=== PATIENT | male | born 1945 | race Caucasian/White ===

== ENCOUNTER 2016-12-31 09:59 | Day surgery (SDC) | payer OTHER ==
[~2016-12-31 09:59] MED LIST: BRIMONIDINE 0.2% OPHTH DROPS 5 ML ONE; KETOROLAC 0.45% OPHTH DROPS ONE; PROPARACAINE 0.5% OPHTH DROPS 15 ML ONE; TIMOLOL 0.5% OPHTH DROPS ONE
[2016-12-31] MEDS: PHENYLEPHRINE 2.5% OPHTH 2 ML DROPS ONE ×3 (10:40→10:53)
[2016-12-31] MEDS: CYCLOPENTOLATE 1% OPHTH DROPS 2 ML ONE ×3 (10:41→10:53)
[2016-12-31] MEDS ORDERED: LACTATED RINGERS 1,000 ML IV ONE (10:43)
[2016-12-31] MEDS ORDERED: PROPARACAINE 0.5% OPHTH DROPS 15 ML RIGHTEYE ONE (11:48)
[2016-12-31] MEDS ORDERED: MIDAZOLAM 2 MG/2 ML VIAL IVP ONE (11:50)
[2016-12-31] MEDS ORDERED: TRIAMCIN/MOXIFLOX/VANCO 1 ML VIAL IO ONE (11:58)
[2016-12-31] MEDS ORDERED: TIMOLOL 0.5% OPHTH DROPS OPTH ONE (11:58)
[2016-12-31] MEDS ORDERED: EPINEPHrine 1 MG/ML AMP IVP ONE (11:58)
[2016-12-31] MEDS ORDERED: CHONDR SULF/HYALURONATE SYRINGE IO ONE (11:58)
[2016-12-31] MEDS ORDERED: BSS/LIDOCAINE/EPINEPHRINE 1 ML SYRINGE IO ONE (11:58)
[2016-12-31 12:50] VITALS: BP 122/68
--- NOTE | 2017-01-01 06:00 | OPERATIVE REPORT ---
DATE OF SURGERY: 12/31/2016 00:00:00 PREOPERATIVE DIAGNOSIS: Visually significant cataract, right eye. This was his first cataract surgery. Of note, he has keratoconus. POSTOPERATIVE DIAGNOSIS: Visually significant cataract, right eye. This was his first cataract surgery. Of note, he has keratoconus. NAME OF PROCEDURE: Phacoemulsification posterior chamber intraocular lens implant, right eye. SURGEON: Mike Nelson MD. ANESTHESIA: Monitored anesthesia care. COMPLICATIONS: None. OPERATIVE INDICATIONS: This is a 71-year-old man with progressive vision loss in the right eye due to 2+ nuclear and vacular cataract. Best corrected visual acuity was 20/70 with glare to 20/200 in the right eye. Indications for surgery were overall decrease in vision, difficulty seeing words on the computer screen , difficulty reading, difficulty seeing words or game scores on TV, difficulty seeing street signs, difficulty driving in low light or at night, difficulty driving at night because of head lights from other vehicles, difficulty with glare and bright lights in any situation and tracking a golf ball. He was consented at length concerning the risks and benefits of cataract surgery, after which he expressed a desire to proceed with surgery. OPERATIVE PROCEDURE: The patient was taken into OR #3 and placed under monitored anesthesia care. a surgical time-out was conducted confirming the correct patient, correct procedure and correct surgical site. He was placed under the LenSx laser and his eye docked to the laser interface. The laser performed the capsulotomy, lens softening, phaco wounds, and intrasromal toric lens markers. He was then moved to the operating microscope, given topical anesthesia, and prepped and draped in the usual sterile fashion. The eye was entered at the 12 and 9 o'clock positions. Intracameral Shugarcaine was injected into the anterior chamber followed by Viscoat. The capsulorrhexis flap created laser was removed from the anterior chamber. The nucleus was hydrodissected and phacoemulsified. The cortex was evacuated using automated infusion aspiration. Provisc was injected into the capsular bag and a 6.0 diopter toric intraocular lens was inserted in the bag and rotated to axis 118. I/A was used to evacuate the viscoelastic materials. The eye was inflated to physiologic pressure using balanced salt solution and found to be water tight. The lens verified to be in the proper position. Approximately 0.7 mL of a mixture of triamcinolone, moxifloxacin, and vancomycin was injected subconjunctivally in the superior quadrant for infection and inflammation prophylaxis. After final verification of the watertight integrity and position of the lens, the patient was taken from the operating room in good condition, given postoperative instructions. JOB #: [id number] EXT JOB #:[id number] MTDD
== END 2016-12-31 10:00 | disposition home or self-care (01) ==
LOC: SDS 09:59
PROVIDERS: ATTEND Ophthalmology
PROC: 08RJ3JZ Replacement of Right Lens with Synthetic Substitute, Percutaneous Approach (ICD-10-PCS; principal; 2016-12-31 11:00)
DX: H25.811 Combined forms of age-related cataract, right eye (principal); L57.0 Actinic keratosis
CPT/HCPCS: 66984; A9270; J3490; J7120; V2632; V2787

== ENCOUNTER 2017-01-28 08:48 | Day surgery (SDC) | payer OTHER ==
[~2017-01-28 08:48] MED LIST changes: +CYCLOPENTOLATE 1% OPHTH DROPS 2 ML ONE; +PHENYLEPHRINE 2.5% OPHTH 2 ML DROPS ONE
[2017-01-28] MEDS ORDERED: PROPARACAINE 0.5% OPHTH DROPS 15 ML LEFTEYE ONE ×2 (09:37→10:16)
[2017-01-28] MEDS ORDERED: CYCLOPENTOLATE 1% OPHTH DROPS 2 ML LEFTEYE ONE (09:37)
[2017-01-28] MEDS ORDERED: PHENYLEPHRINE 2.5% OPHTH 2 ML DROPS LEFTEYE ONE (09:37)
[2017-01-28] MEDS ORDERED: KETOROLAC 0.45% OPHTH DROPS LEFTEYE ONE (09:37)
[2017-01-28] MEDS ORDERED: LACTATED RINGERS 500 ML IV ONE (09:45)
[2017-01-28] MEDS ORDERED: BRIMONIDINE 0.2% OPHTH DROPS 5 ML OPTH ONE (10:14)
[2017-01-28] MEDS ORDERED: MIDAZOLAM 2 MG/2 ML VIAL IVP ONE (10:15)
[2017-01-28] MEDS ORDERED: TIMOLOL 0.5% OPHTH DROPS OPTH ONE (10:15)
[2017-01-28] MEDS ORDERED: EPINEPHrine 1 MG/ML AMP IVP ONE (10:15)
[2017-01-28] MEDS ORDERED: CHONDR SULF/HYALURONATE SYRINGE IO ONE (10:15)
[2017-01-28] MEDS ORDERED: BSS/LIDOCAINE/EPINEPHRINE 1 ML SYRINGE IO ONE ×2 (10:16)
[2017-01-28] MEDS ORDERED: TRIAMCIN/MOXIFLOX/VANCO 1 ML VIAL IO ONE ×2 (10:16)
[2017-01-28 10:49] VITALS: BP 126/63
--- NOTE | 2017-01-29 15:30 | OPERATIVE REPORT ---
DATE OF SURGERY: 01/28/2017 PREOPERATIVE DIAGNOSIS: Visually significant cataract, left eye. Cataract surgery was performed on his right eye on December,. He also has keratoconus and we will be using an intraocular lens with the most amount of astigmatism correction to reduce his astigmatism. POSTOPERATIVE DIAGNOSIS: Visually significant cataract, left eye. Cataract surgery was performed on his right eye on December,. He also has keratoconus and we will be using an intraocular lens with the most amount of astigmatism correction to reduce his astigmatism. PROCEDURE: Phacoemulsification with posterior chamber intraocular lens implant, left eye using laser assist. SURGEON: Mike Nelson MD ANESTHESIA: Monitored anesthesia care. COMPLICATIONS: None. OPERATIVE INDICATION: This is a 71-year-old man with progressive vision loss in the left eye due to 2+ nuclear sclerotic cataract. Best corrected visual acuity was 20/30 with glare to 26/30 in the left eye. INDICATIONS FOR SURGERY: Overall decrease in vision, difficulty seeing words, closed captions or game scores on TV, difficulty seeing street signs, difficulty driving at night because of headlights from other vehicles and/or street lights and difficulty tracking a golf ball. He was consented at length concerning risks and benefits of cataract surgery, after which he expressed desire to proceed with surgery. OPERATIVE PROCEDURE: The patient was taken into OR #2 and placed under monitored anesthesia care, surgical timeout was conducted confirming correct patient, correct procedure, and correct surgical site. He was placed on the LenSx laser and his eye docked to laser interface. The laser performed the capsulotomy, some lens softening, although the curvature of the cornea prevented most of that, phaco wounds and marker incisions at 045 and 225 in order to align the toric intraocular lens. He was then moved to the operating microscope, given topical anesthesia and prepped and draped in the usual sterile fashion. The eye was entered at the 6 and 3 o'clock positions. Intracameral Shugarcaine was injected into the anterior chamber, followed by Viscoat. A capsulorrhexis flap created by the LenSx laser was removed from the anterior chamber after completing the rhexis where there were a couple o'clock hour tags superiorly and inferiorly, again due to laser not being able to penetrate the folded cornea due to high astigmatism. The nucleus was hydrodissected and phacoemulsified. The cortex was evacuated using automated infusion aspiration. Provisc was injected in the capsular bag, and a 7.5 diopter toric intraocular lens was inserted in the bag and rotated to position 045 and 225 in alignment with the intrastromal corneal markers. Approximately 0.7 mL of a mixture of triamcinolone, moxifloxacin and vancomycin was injected subconjunctivally in the superior quadrant for infection and inflammation prophylaxis. I and A was used to evacuate the viscoelastic material. The eye was inflated to physiologic pressure using balanced salt solution and found to be watertight. The patient was taken from the operating room in good condition and given postoperative instructions. TD: 01/29/2017 09:14 DORI
== END 2017-01-28 08:49 | disposition home or self-care (01) ==
LOC: SDS 08:48
PROVIDERS: ATTEND Ophthalmology
PROC: 08RK3JZ Replacement of Left Lens with Synthetic Substitute, Percutaneous Approach (ICD-10-PCS; principal; 2017-01-28 10:00)
DX: H25.12 Age-related nuclear cataract, left eye (principal); H52.202 Unspecified astigmatism, left eye
CPT/HCPCS: 66984; A9270; J3490; V2632; V2787